=== PATIENT | female | born 2005 | race Caucasian/White ===

== ENCOUNTER 2024-07-14 20:10 | Observation (INO) ==
[2024-07-14] MEDS ORDERED: Ondansetron 4 mg VIAL 2 MG/ML 2 ml VIAL ONE (20:49)
[2024-07-14] MEDS: Lactated Ringers 1000 ml BAG 1,000 ML IV ONE (20:58)
[2024-07-14] MEDS: Ondansetron 4 mg VIAL 2 MG/ML 2 ml VIAL IV ONE ×2 (20:58→23:54)
[2024-07-14 21:07] LABS: ABS Basophils 0.2 10^3/uL (0.0-0.1); ABS Lymphocytes 2.2 10^3/uL (1.0-4.8); ABS Monocytes 0.8 10^3/uL (0.0-0.9); ABS Neutrophils 11.4 10^3/uL (1.5-7.6); ABS Nucleated RBC 0.01 10^3/ul; Eosinophil % 0.2 %; Hematocrit 38.5 % (35-45); Lymphocyte % 14.8 %; Mean Corpuscular Hemoglobin 27.1 pg (27-33); Mean Corpuscular Hgb Conc 33.7 g/dL (31-36); Mean Corpuscular Volume 80.4 fL (80-97); Mean Platelet Volume 7.6 fL (7.5-11.2); Platelet Count 377 10^3/uL (150-450); Red Blood Count 4.79 10^6/uL (3.63-4.92); White Blood Count 14.6 10^3/uL (3.8-11.8)
[2024-07-14 21:11] LABS: High Sens Troponin Baseline 4 pg/mL (<15)
[2024-07-14 21:22] LABS: ALT 16 U/L (7-52); AST 15 U/L (13-39); Albumin 3.9 g/dL (3.2-5.2); Albumin/Globulin Ratio 1.3 (1-3); Alkaline Phosphatase 71 U/L (35-149); Anion Gap 12 mmol/L (2-16); Blood Urea Nitrogen 14 mg/dL (6-24); CO2 Carbon Dioxide 21 mmol/L (22-32); Calcium 9.1 mg/dL (8.6-10.3); Chloride 104 mmol/L (101-111); Creatinine, Serum 0.55 mg/dL (0.51-0.95); Globulin 2.9 g/dL (2-4); Glucose 103 mg/dL (70-100); Lipase 12 U/L (11.0-82.0); Potassium 3.5 mmol/L (3.5-5.0); Sodium 137 mmol/L (135-145); Total Bilirubin 0.5 mg/dL (0.2-1.0); Total Protein 6.8 g/dL (6.4-8.9); eGFR CKD-EPI 133.7 (>60)
[2024-07-14 21:26] LABS: HCG Pregnancy < 0.60 mIU/mL
[2024-07-14] MEDS: Morphine 4 MG/ML VIAL (1 ml) IV ONE (21:53)
[2024-07-15] MEDS ORDERED: Ondansetron 4 mg VIAL 2 MG/ML 2 ml VIAL IV PRN (00:02)
[2024-07-15] MEDS: Morphine 4 MG/ML VIAL (1 ml) IV ONE (00:06)
[2024-07-15] MEDS: Piperacillin/Tazobac 3.375 BAG 3.375 GM/100 ML BAG IV ONE (00:07)
[2024-07-15] MEDS: HYDROmorphone 1 MG/1 ML SYRINGE IV SLOW PU PRN (01:20)
[2024-07-15] MEDS: NS 0.9% 1000 ml BAG 1,000 ML IV SCH (01:25)
[2024-07-15] MEDS: Piperacillin/Tazobac 3.375 BAG 3.375 GM/100 ML BAG IV SCH (05:22)
[2024-07-15] MEDS ORDERED: Buffered Lidocaine 1% SYRIN 1 ml INTRADERM ONE (14:25)
[2024-07-15] MEDS ORDERED: HYDROmorphone 1 MG/1 ML SYRINGE IV PRN (14:27)
[2024-07-15] MEDS ORDERED: Naloxone 0.4 mg VIAL 0.4 mg/ml 1 ml VIAL IV PRN (14:27)
[2024-07-15] MEDS ORDERED: Bupivacaine 0.25% SDV 30 ML ONE (14:31)
[2024-07-15 14:32] VITALS: BP 122/74
[2024-07-15] MEDS ORDERED: Dexamethasone IV 4 MG/ML VIAL 1 ml VIAL ONE (14:41)
[2024-07-15] MEDS ORDERED: Famotidine IV 10 MG/ML 2 ml VIAL (20 mg) ONE (14:41)
[2024-07-15] MEDS: Famotidine IV 10 MG/ML 2 ml VIAL (20 mg) IV ONE (14:42)
[2024-07-15] MEDS: Lactated Ringers 1000 ml BAG 1,000 ML IV SCH (14:42)
[2024-07-15] MEDS: Dexamethasone IV 4 MG/ML VIAL 1 ml VIAL IV SLOW PU ONE (14:42)
[2024-07-15] MEDS ORDERED: fentaNYL 100 mcg/2 ml 50 MCG/ML VIAL ONE ×2 (15:14→16:50)
[2024-07-15] MEDS ORDERED: Midazolam 2 mg/2 ml VIAL 1 mg/ml 2 ml VIAL (2 mg) ONE (15:14)
[2024-07-15] MEDS ORDERED: Rocuronium 50 mg VIAL 10 mg/ml 5 ml VIAL (50 mg) ONE (15:15)
[2024-07-15] MEDS ORDERED: Lidocaine 2% PF 5 ML VIAL ONE (15:15)
[2024-07-15] MEDS ORDERED: Propofol 10 MG/ML 20 ML BTL ONE (15:15)
[2024-07-15] MEDS ORDERED: HYDROmorphone 0.5 MG/0.5 ML SYRINGE ONE ×2 (16:36→17:11)
[2024-07-15] MEDS ORDERED: Metoprolol Tartrate 5 mg VIAL 5 ml VIAL (1 mg/ml) ONE (17:26)
[2024-07-15] MEDS ORDERED: Ondansetron 4 mg VIAL 2 MG/ML 2 ml VIAL ONE ×2 (17:38→18:46)
[2024-07-15] MEDS ORDERED: Ondansetron 4 mg VIAL 2 MG/ML 2 ml VIAL IV ONE (19:43)
[2024-07-15] MEDS ORDERED: Prochlorperazine 5 mg/ml 2 ml VIAL (10 mg) ONE (19:52)
[2024-07-15] MEDS: Prochlorperazine 5 mg/ml 2 ml VIAL (10 mg) IV PRN (19:54)
== END 2024-07-15 20:45 | disposition home or self-care (01) ==
LOC: EDHOLD 20:10 → ED 20:10 → EDHOLD 07-15 10:13 → AA 07-15 14:55
PROVIDERS: ADMIT Surgery; ATTEND Surgery Surgical Critical Care